=== PATIENT | male | born 2000 | race Caucasian/White ===

== ENCOUNTER 2019-02-27 18:12 | Emergency (ER) | payer OTHER ==
[2019-02-27] MEDS ORDERED: METOCLOPRAMIDE 5 MG/ML 2 ML VIAL IVP STA (18:32)
[2019-02-27] MEDS ORDERED: SODIUM CHLORIDE 0.9% 1,000 ML IV STA (18:32)
[2019-02-27] MEDS ORDERED: diphenhydrAMINE 50 MG/ML 1 ML VIAL IVP STA (18:32)
--- NOTE | 2019-02-27 18:35 | ED ---
Nausea/Vomiting/Diarrhea HPI - General Chief complaint: Nausea/Vomiting/Diarrhea Stated complaint: Nausea Time Seen by Provider: 02/27/19 18:22 Source: patient Mode of arrival: ambulatory Limitations: no limitations - History of Present Illness Initial comments: 18-year-old male patient presents to the emergency department today for evaluation of nausea and vomiting. Patient states he woke this morning with nausea and then developed vomiting. Patient states that he vomits anytime he tries to eat or drink anything. States he has dry heaves when he doesn't have anything on his stomach. States he is having some mild generalized abdominal discomfort. States he has had 3 episodes of diarrhea with this. States vomitus is nonbilious and nonbloody. Denies any fever or chills. Denies any recent travel or sick contacts. Denies any recent medication changes or use of antibiotics. Does admit to drinking one beer yesterday. Denies eating any qu estionable foods. States he is otherwise healthy and was in his usual state of health prior to onset of symptoms. Patient denies any recent rash, shortness breath, chest pain, diarrhea, constipation, back pain, numbness, tingling, dizziness, weakness, hematuria, dysuria, urinary urgency, urinary frequency, headache, visual changes, or any other complaints. Patient was sent here from urgent care after receiving IV fluids and Zofran which did not improve his symptoms. - Related Data Previous Rx's Medication Instructions Recorded Dicyclomine [Bentyl] 20 mg PO QID #12 tablet 02/27/19 Metoclopramide [Reglan] 10 mg PO Q8H PRN #10 tab 02/27/19 Allergies Allergy/AdvReac Type Severity Reaction Status Date / Time No Known Allergies Allergy Verified 02/27/19 18:20 Review of Systems ROS Statement: Those systems with pertinent positive or pertinent negative responses have been documented in the HPI. ROS Other: All systems not noted in ROS Statement are negative. Past Medical History Past Medical History: No Reported History History of Any Multi-Drug Resistant Organisms: None Reported Past Surgical History: No Surgical Hx Reported Past Psychological History: No Psychological Hx Reported Smoking Status: Current every day smoker Past Alcohol Use History: None Reported Past Drug Use History: None Reported General Exam Limitations: no limitations General appearance: alert, in no apparent distress, other (Physical well- developed, well-nourished adult male patient in no acute distress. Vital signs upon presentation are temperature 98.0F, pulse 82, respirations 18, blood pressure 147/83, pulse ox 99% on room air.) Eye exam: Present: normal appearance, PERRL, EOMI. Absent: scleral icterus, conjunctival injection, periorbital swelling ENT exam: Present: normal exam, normal oropharynx, mucous membranes moist Respiratory exam: Present: normal lung sounds bilaterally. Absent: respiratory distress, wheezes, rales, rhonchi, stridor Cardiovascular Exam: Present: regular rate, normal rhythm, normal heart sounds. Absent: systolic murmur, diastolic murmur, rubs, gallop, clicks GI/Abdominal exam: Present: soft, normal bowel sounds. Absent: distended, tenderness, guarding, rebound, rigid Neurological exam: Present: alert, oriented X3, CN II-XII intact Psychiatric exam: Present: normal affect, normal mood Skin exam: Present: warm, dry, intact, normal color. Absent: rash Course Vital Signs 02/27/19 02/27/19 02/27/19 18:19 19:23 20:16 Temperature 98.0 F 98.9 F 98 F Pulse Rate 82 71 84 Respiratory 18 16 16 Rate Blood Pressure 147/83 123/71 123/71 O2 Sat by Pulse 99 96 100 Oximetry Medical Decision Making - Medical Decision Making 18-year-old male patient presents to emergency department today for evaluation of vomiting and diarrhea. Physical examination reveals soft nontender abdomen. Labs reviewed and did reveal white blood cell count of 15.2. Remainder labs are unremarkable. Leukocytosis felt to be reactive from vomiting. Patient did receive IV fluids, Reglan, and Benadryl here in the emergency department. Upon reevaluation he reports improvement of symptoms. Symptoms are consistent with viral gastritis. He will be discharged with antiemetics. He is instructed to start with clear liquid diet and advance as tolerated. Is instructed to follow- up with his primary care physician for recheck in 1-2 days. Return parameters w ere discussed in detail. He verbalizes understanding and agrees with this plan. - Lab Data Result diagrams: 02/27/19 18:47 02/27/19 18:47 Lab Results 02/27/19 02/27/19 02/27/19 Range/Units 18:47 18:47 20:08 WBC 15.2 H (4.0-11.0) k/uL RBC 5.30 (4.30-5.90) m/uL Hgb 15.8 (13.0-17.5) gm/dL Hct 47.0 (39.0-53.0) % MCV 88.8 (80.0-100.0) fL MCH 29.9 (25.0-35.0) pg MCHC 33.6 (31.0-37.0) g/dL RDW 12.5 (11.5-15.5) % Plt Count 369 (150-450) k/uL Neutrophils % 91 % Lymphocytes % 5 % Monocytes % 3 % Eosinophils % 1 % Basophils % 0 % Neutrophils # 13.8 H (1.3-7.7) k/uL Lymphocytes # 0.8 L (1.0-4.8) k/uL Monocytes # 0.4 (0-1.0) k/uL Eosinophils # 0.1 (0-0.7) k/uL Basophils # 0.0 (0-0.2) k/uL Sodium 140 (137-145) mmol/L Potassium 4.6 (3.5-5.1) mmol/L Chloride 106 (98-107) mmol/L Carbon Dioxide 24 (22-30) mmol/L Anion Gap 10 mmol/L BUN 11 (9-20) mg/dL Creatinine 0.59 L (0.66-1.25) mg/dL Est GFR (CKD-EPI)AfAm >90 (>60 ml/min/1.73 sqM) Est GFR (CKD-EPI)NonAf >90 (>60 ml/min/1.73 sqM) Glucose 136 H (74-99) mg/dL Calcium 10.0 (8.4-10.2) mg/dL Total Bilirubin 2.3 H (0.2-1.3) mg/dL AST 28 (17-59) U/L ALT 19 L (21-72) U/L Alkaline Phosphatase 82 (38-126) U/L Total Protein 7.5 (6.3-8.2) g/dL Albumin 4.6 (3.5-5.0) g/dL Amylase 87 (30-110) U/L Lipase 233 (23-300) U/L Urine Color Yellow Urine Appearance Clear (Clear) Urine pH 8.0 (5.0-8.0) Ur Specific [place] 1.020 (1.001-1.035) Urine Protein Negative (Negative) Urine Glucose (UA) Negative (Negative) Urine Ketones 1+ H (Negative) Urine Blood Negative (Negative) Urine Nitrite Negative (Negative) Urine Bilirubin Negative (Negative) Urine Urobilinogen <2.0 (<2.0) mg/dL Ur Leukocyte Esterase Negative (Negative) - Radiology Data Radiology results: report reviewed, image reviewed KUB x-ray of the abdomen is obtained. Report was reviewed in its entirety. Impression by Dr. Raymundo shows no pneumoperitoneum or bowel dilatation. Disposition Clinical Impression: Gastroenteritis Disposition: HOME SELF-CARE Condition: Good Instructions (If sedation given, give patient instructions): Gastroenteritis (ED), Acute Nausea and Vomiting (ED), Acute Diarrhea (ED) Additional Instructions: Take medications as directed. Start with a clear liquid diet and advance as tolerated. Follow up with her primary care physician for recheck in 1-2 days. Return to the emergency department immediately for any new, worsening, or concerning symptoms Prescriptions: Dicyclomine [Bentyl] 20 mg PO QID #12 tablet Metoclopramide [Reglan] 10 mg PO Q8H PRN #10 tab PRN Reason: Vomiting Is patient prescribed a controlled substance at d/c from ED?: No Referrals: None,Stated [Primary Care Provider] - 1-2 days Time of Disposition: 19:59
[2019-02-27 19:10] LABS: Basophils % (A) 0 %; Eosinophils # (A) 0.1 k/uL (0-0.7); Eosinophils % (A) 1 %; HGB 15.8 gm/dL (13.0-17.5); Lymphocytes # (A) 0.8 k/uL (1.0-4.8); Lymphocytes % (A) 5 %; MCH 29.9 pg (25.0-35.0); MCHC 33.6 g/dL (31.0-37.0); MCV 88.8 fL (80.0-100.0); Mean Platelet Volume 7.1; Monocytes # (A) 0.4 k/uL (0-1.0); Monocytes % (A) 3 %; Neutrophils # (A) 13.8 k/uL (1.3-7.7); Neutrophils % (A) 91 %; Platelet Count 369 k/uL (150-450); RDW 12.5 % (11.5-15.5); WBC 15.2 k/uL (4.0-11.0)
[2019-02-27 19:21] LABS: ALT 19 U/L (21-72); AST 28 U/L (17-59); Albumin 4.6 g/dL (3.5-5.0); Alkaline Phosphatase 82 U/L (38-126); Amylase 87 U/L (30-110); Anion Gap 10 mmol/L; Blood Urea Nitrogen 11 mg/dL (9-20); Carbon Dioxide 24 mmol/L (22-30); Chloride 106 mmol/L (98-107); Glucose 136 mg/dL (74-99); Lipase 233 U/L (23-300); Sodium 140 mmol/L (137-145); Total Bilirubin 2.3 mg/dL (0.2-1.3); Total Protein 7.5 g/dL (6.3-8.2)
--- NOTE | 2019-02-27 19:23 | XR ---
EXAMINATION TYPE: XR KUB DATE OF EXAM: 02/27/2019 6:54 PM CLINICAL HISTORY: Nausea, vomiting and diarrhea TECHNIQUE: Single supine KUB image of the abdomen is obtained. COMPARISON: None. FINDINGS: No dilated loops of large or small bowel. No pneumoperitoneum. Osseous structures are unrem arkable. Limited evaluation of lower thorax is unremarkable. IMPRESSION: No pneumoperitoneum or bowel dilatation.
[2019-02-27 19:24] VITALS: BP 123/71; RESP 16
[2019-02-27 19:25] LABS: Potassium 4.6 mmol/L (3.5-5.1)
[2019-02-27 20:18] VITALS: PULSE 84; TEMP 98
[2019-02-27 20:18] LABS: Appearance,Urine Clear (Clear); Bilirubin,Urine Negative (Negative); Blood,Urine Negative (Negative); Color,Urine Yellow; Glucose,Urine (UA) Negative (Negative); Ketones,Urine 1+ (Negative); Leukocyte Esterase,Urine Negative (Negative); Nitrite,Urine Negative (Negative); Protein,Urine Negative (Negative); Urobilinogen,Urine <2.0 mg/dL (<2.0)
== END 2019-02-27 20:20 | disposition home or self-care (01) ==
LOC: EC 18:12
DX: K52.9 Noninfective gastroenteritis and colitis, unspecified (principal); D72.829 Elevated white blood cell count, unspecified; F17.200 Nicotine dependence, unspecified, uncomplicated
CPT/HCPCS: 36415; 80053; 82150; 83690; 85025; 81003; 74018; 99284; 96374; 96375; 96361; J1200; J2765

== ENCOUNTER 2021-01-31 16:08 | Emergency (ER) | payer OTHER ==
[2021-01-31 16:21] VITALS: RESP 18
[2021-01-31] MEDS ORDERED: MORPHINE SULFATE 4 MG/ML SYRINGE IV STA (16:27)
[2021-01-31] MEDS ORDERED: SODIUM CHLORIDE 0.9% 1,000 ML IV STA (16:27)
[2021-01-31] MEDS ORDERED: ONDANSETRON 4 MG/2 ML VIAL IVP STA (16:27)
--- NOTE | 2021-01-31 16:29 | ED ---
Nausea/Vomiting/Diarrhea HPI - General Chief complaint: Nausea/Vomiting/Diarrhea Stated complaint: Abd Pain Time Seen by Provider: 01/31/21 16:23 Source: patient, RN notes reviewed Mode of arrival: wheelchair Limitations: no limitations - History of Present Illness Initial comments: Patient is a 20-year-old male that presents to emergency department with a three-day history of nausea and vomiting with generalized abdominal discomfort. He notes that he is not able to keep any food or liquids down and he was in obvious emotional distress while sitting up in bed during the exam interview. He kept repeating that he just wants the pain to stop and the nausea to stop. He stated that the pain was an 8 out of 10 unrelieved with any at home remedies. He said that nothing really aggravates or causes the nausea vomiting or abdominal pain is constant. He denied any chest pain shortness breath headache diarrhea constipation fever fatigue chills hematochezia melena hematemesis. - Related Data Home Medications Medication Instructions Recorded Confirmed No Known Home Medications 01/31/21 01/31/21 Allergies Allergy/AdvReac Type Severity Reaction Status Date / Time No Known Allergies Allergy Verified 01/31/21 17:44 Review of Systems ROS Statement: Those systems with pertinent positive or pertinent negative responses have been documented in the HPI. ROS Other: All systems not noted in ROS Statement are negative. Past Medical History Past Medical History: No Reported History History of Any Multi-Drug Resistant Organisms: None Reported Past Surgical History: No Surgical Hx Reported Past Psychological History: No Psychological Hx Reported Smoking Status: Current some day smoker Past Alcohol Use History: None Reported Past Drug Use History: Marijuana General Exam Limitations: no limitations General appearance: alert, in distress Head exam: Present: atraumatic, normocephalic, normal inspection Eye exam: Present: normal appearance, PERRL, EOMI. Absent: scleral icterus, conjunctival injection, periorbital swelling Neck exam: Present: normal inspection. Absent: tenderness, meningismus, lymphadenopathy Respiratory exam: Present: normal lung sounds bilaterally. Absent: respiratory distress, wheezes, rales, rhonchi, stridor Cardiovascular Exam: Present: regular rate, normal rhythm, normal heart sounds. Absent: systolic murmur, diastolic murmur, rubs, gallop, clicks GI/Abdominal exam: Present: soft, normal bowel sounds. Absent: distended, tenderness, guarding, rebound, rigid Extremities exam: Present: normal inspection, full ROM, normal capillary refill. Absent: tenderness, pedal edema, joint swelling, calf tenderness Neurological exam: Present: alert, oriented X3, CN II-XII intact Psychiatric exam: Present: normal affect, normal mood Skin exam: Present: warm, dry, intact, normal color. Absent: rash Course Vital Signs 01/31/21 01/31/21 16:18 18:54 Temperature 98.0 F 98.5 F Pulse Rate 92 80 Respiratory 18 18 Rate Blood Pressure 144/82 139/89 O2 Sat by Pulse 100 100 Oximetry Medical Decision Making - Medical Decision Making 20-year-old male complaining of abdominal pain with nausea and vomiting 3 days. Labs, 1 L normal saline, 4 mg of morphine, 4 mg of Zofran, KUB ordered. Labs unremarkable. KUB unremarkable for any acute process. Case discussed with Dr. 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 - Lab Data Result diagrams: 01/31/21 16:39 01/31/21 16:39 Lab Results 01/31/21 01/31/21 01/31/21 Range/Units 16:39 16:39 17:17 WBC 13.6 H (3.8-10.6) k/uL RBC 5.77 (4.30-5.90) m/uL Hgb 18.2 H (13.0-17.5) gm/dL Hct 50.9 (39.0-53.0) % MCV 88.1 (80.0-100.0) fL MCH 31.5 (25.0-35.0) pg MCHC 35.7 (31.0-37.0) g/dL RDW 12.0 (11.5-15.5) % Plt Count 273 (150-450) k/uL MPV 7.2 Neutrophils % 90 % Lymphocytes % 6 % Monocytes % 2 % Eosinophils % 1 % Basophils % 0 % Neutrophils # 12.2 H (1.3-7.7) k/uL Lymphocytes # 0.8 L (1.0-4.8) k/uL Monocytes # 0.3 (0-1.0) k/uL Eosinophils # 0.2 (0-0.7) k/uL Basophils # 0.0 (0-0.2) k/uL Sodium 138 (137-145) mmol/L Potassium 3.6 (3.5-5.1) mmol/L Chloride 100 (98-107) mmol/L Carbon Dioxide 23 (22-30) mmol/L Anion Gap 15 mmol/L BUN 14 (9-20) mg/dL Creatinine 0.81 (0.66-1.25) mg/dL Est GFR (CKD-EPI)AfAm >90 (>60 ml/min/1.73 sqM) Est GFR (CKD-EPI)NonAf >90 (>60 ml/min/1.73 sqM) Glucose 130 H (74-99) mg/dL Calcium 10.6 H (8.4-10.2) mg/dL Total Bilirubin 2.0 H (0.2-1.3) mg/dL AST 24 (17-59) U/L ALT 20 (4-49) U/L Alkaline Phosphatase 99 (38-126) U/L Total Protein 8.6 H (6.3-8.2) g/dL Albumin 5.2 H (3.5-5.0) g/dL Amylase 154 H (30-110) U/L Lipase 240 (23-300) U/L Urine Color Yellow Urine Appearance Turbid (Clear) Urine pH 8.0 (5.0-8.0) Ur Specific [place] 1.024 (1.001-1.035) Urine Protein 1+ H (Negative) Urine Glucose (UA) Negative (Negative) Urine Ketones 2+ H (Negative) Urine Blood Negative (Negative) Urine Nitrite Negative (Negative) Urine Bilirubin Negative (Negative) Urine Urobilinogen <2.0 (<2.0) mg/dL Ur Leukocyte Esterase Negative (Negative) Urine RBC 3 (0-5) /hpf Urine WBC 1 (0-5) /hpf Amorphous Sediment Occasional H (None) /hpf Urine Mucus Moderate H (None) /hpf - Radiology Data Radiology results: report reviewed, image reviewed KUB: Nonspecific bowel gas pattern, with a paucity of bowel gas. Disposition Clinical Impression: Nausea & vomiting Disposition: HOME SELF-CARE Condition: Stable Instructions (If sedation given, give patient instructions): Acute Nausea and Vomiting (ED) Additional Instructions: Please return to the Emergency Department if symptoms worsen or any other vj rns. Follow-up with primary care and powertrain design engineer Increase oral fluids, rest. Is patient prescribed a controlled substance at d/c from ED?: No Referrals: None,Stated [Primary Care Provider] - 1-2 days Jorge Zhu MD [STAFF PHYSICIAN] - 1-2 days Time of Disposition: 18:58
[2021-01-31 16:49] LABS: Basophils % (A) 0 %; Eosinophils # (A) 0.2 k/uL (0-0.7); Eosinophils % (A) 1 %; HCT 50.9 % (39.0-53.0); HGB 18.2 gm/dL (13.0-17.5); Lymphocytes # (A) 0.8 k/uL (1.0-4.8); Lymphocytes % (A) 6 %; MCH 31.5 pg (25.0-35.0); MCHC 35.7 g/dL (31.0-37.0); MCV 88.1 fL (80.0-100.0); Mean Platelet Volume 7.2; Monocytes # (A) 0.3 k/uL (0-1.0); Monocytes % (A) 2 %; Neutrophils # (A) 12.2 k/uL (1.3-7.7); Neutrophils % (A) 90 %; Platelet Count 273 k/uL (150-450); RBC 5.77 m/uL (4.30-5.90); WBC 13.6 k/uL (3.8-10.6)
[2021-01-31 17:02] LABS: ALT 20 U/L (4-49); AST 24 U/L (17-59); African American GFR (CKD) >90 (>60 ml/min/1.73 sqM); Albumin 5.2 g/dL (3.5-5.0); Alkaline Phosphatase 99 U/L (38-126); Amylase 154 U/L (30-110); Anion Gap 15 mmol/L; Blood Urea Nitrogen 14 mg/dL (9-20); Calcium 10.6 mg/dL (8.4-10.2); Carbon Dioxide 23 mmol/L (22-30); Chloride 100 mmol/L (98-107); Glucose 130 mg/dL (74-99); Lipase 240 U/L (23-300); Non-African American GFR(CKD) >90 (>60 ml/min/1.73 sqM); Potassium 3.6 mmol/L (3.5-5.1); Sodium 138 mmol/L (137-145); Total Protein 8.6 g/dL (6.3-8.2)
--- NOTE | 2021-01-31 17:23 | XR ---
EXAMINATION TYPE: XR KUB DATE OF EXAM: 01/31/2021 4:53 PM CLINICAL HISTORY: Abdominal pain and nausea TECHNIQUE: Upright images of the abdomen and pelvis were obtained COMPARISON: 02/27/2019. FINDINGS: Lung bases are clear. Nonspecific bowel gas pattern with a paucity of abdominal bowel gas. No pneumoperitoneum. The osseous structures are intact. IMPRESSION: Nonspecific bowel gas pattern, with a paucity of bowel gas.
[2021-01-31 17:47] LABS: Amorphous Sediment,Urine Occasional /hpf; Appearance,Urine Turbid (Clear); Bilirubin,Urine Negative (Negative); Blood,Urine Negative (Negative); Color,Urine Yellow; Glucose,Urine (UA) Negative (Negative); Ketones,Urine 2+ (Negative); Leukocyte Esterase,Urine Negative (Negative); Mucus,Urine Moderate /hpf; Nitrite,Urine Negative (Negative); Protein,Urine 1+ (Negative); RBC,Urine 3 /hpf (0-5); Specific Gravity,Urine 1.024 (1.001-1.035); Urobilinogen,Urine <2.0 mg/dL (<2.0); WBC,Urine 1 /hpf (0-5)
[2021-01-31 18:56] VITALS: BP 139/89; PULSE 80; TEMP 98.5
== END 2021-01-31 19:06 | disposition home or self-care (01) ==
LOC: EC 16:08
DX: R11.2 Nausea with vomiting, unspecified (principal); F12.90 Cannabis use, unspecified, uncomplicated; F17.200 Nicotine dependence, unspecified, uncomplicated
CPT/HCPCS: 36415; 80053; 82150; 83690; 85025; 81001; 74018; 99284; 96374; 96375; 96361; J2270; J2405

== ENCOUNTER 2021-05-02 17:44 | Inpatient (IN) | payer OTHER ==
[2021-05-02] MEDS ORDERED: KETOROLAC 15 MG/ML 1 ML VIAL IVP STA (19:28)
[2021-05-02] MEDS ORDERED: SODIUM CHLORIDE 0.9% 2,000 ML IV STA (19:28)
[2021-05-02] MEDS ORDERED: ONDANSETRON 4 MG/2 ML VIAL IVP STA (19:28)
[2021-05-02 19:42] LABS: Basophils % (A) 0 %; Eosinophils % (A) 0 %; HCT 49.8 % (39.0-53.0); HGB 17.4 gm/dL (13.0-17.5); Lymphocytes # (A) 0.9 k/uL (1.0-4.8); Lymphocytes % (A) 8 %; MCH 31.1 pg (25.0-35.0); MCHC 34.9 g/dL (31.0-37.0); MCV 89.2 fL (80.0-100.0); Mean Platelet Volume 7.5; Monocytes # (A) 0.2 k/uL (0-1.0); Monocytes % (A) 2 %; Neutrophils # (A) 9.1 k/uL (1.3-7.7); Neutrophils % (A) 89 %; Platelet Count 290 k/uL (150-450); RBC 5.59 m/uL (4.30-5.90); RDW 12.2 % (11.5-15.5); WBC 10.2 k/uL (3.8-10.6)
[2021-05-02 19:53] LABS: ALT 22 U/L (4-49); AST 27 U/L (17-59); African American GFR (CKD) >90 (>60 ml/min/1.73 sqM); Albumin 5.8 g/dL (3.5-5.0); Alkaline Phosphatase 105 U/L (38-126); Amylase 215 U/L (30-110); Anion Gap 17 mmol/L; Blood Urea Nitrogen 12 mg/dL (9-20); Calcium 10.8 mg/dL (8.4-10.2); Carbon Dioxide 22 mmol/L (22-30); Chloride 103 mmol/L (98-107); Glucose 121 mg/dL (74-99); Lipase 1010 U/L (23-300); Non-African American GFR(CKD) >90 (>60 ml/min/1.73 sqM); Potassium 3.9 mmol/L (3.5-5.1); Sodium 142 mmol/L (137-145); Total Bilirubin 3.2 mg/dL (0.2-1.3); Total Protein 8.8 g/dL (6.3-8.2)
[2021-05-02] MEDS ORDERED: METOCLOPRAMIDE 5 MG/ML 2 ML VIAL IVP STA (21:08)
[2021-05-02] MEDS ORDERED: diphenhydrAMINE 50 MG/ML 1 ML VIAL IVP STA (21:08)
[2021-05-02 21:18] LABS: Appearance,Urine Clear (Clear); Bilirubin,Urine Negative (Negative); Blood,Urine Negative (Negative); Color,Urine Light Yellow; Glucose,Urine (UA) Negative (Negative); Ketones,Urine 2+ (Negative); Leukocyte Esterase,Urine Negative (Negative); Nitrite,Urine Negative (Negative); PH, Urine 7.5 (5.0-8.0); Protein,Urine Negative (Negative); Specific Gravity,Urine 1.013 (1.001-1.035); Urobilinogen,Urine <2.0 mg/dL (<2.0)
--- NOTE | 2021-05-02 21:24 | US ---
EXAMINATION TYPE: US abdomen limited DATE OF EXAM: 05/02/2021 COMPARISON: None CLINICAL HISTORY: ruq. mid abdominal pain, nausea and vomiting x 2 years, getting worse EXAM MEASUREMENTS: Liver Length: 16.9 cm Gallbladder Wall: 0.2 cm CBD: 0.4 cm Right Kidney: 11.5 x 4.6 x 5.1 cm Pancreas: visualized portions appear wnl Liver: wnl Gallbladder: no evidence of stones Evidence for sonographic Cuevas's sign: no CBD: appears wnl Right Kidney: no evidence of hydronephrosis IMPRESSION: No acute sonographic process.
[2021-05-02] MEDS ORDERED: ONDANSETRON 4 MG/2 ML VIAL IVP PRN (22:19)
[2021-05-02] MEDS ORDERED: HYDROmorphone 0.5 MG/0.5 ML SYRINGE IVP PRN (22:19)
[2021-05-02] MEDS ORDERED: NALOXONE 0.4 MG/ML 1 ML VIAL IV PRN (22:19)
--- NOTE | 2021-05-02 22:19 | ED ---
General Adult HPI - General Source: patient, RN notes reviewed Mode of arrival: wheelchair Limitations: no limitations <Alec Talamantes - Last Filed: 05/02/21 22:17> <Micki Castellano - Last Filed: 05/08/21 23:45> - General Chief complaint: Nausea/Vomiting/Diarrhea Stated complaint: Nausea/Vomiting Time Seen by Provider: 05/02/21 18:35 - History of Present Illness Initial comments: 21-year-old male with a past medical history of cyclic vomiting syndrome presents to the emergency room for a chief complaint of nausea vomiting. Patient reports he has had nausea and vomiting for the past day. States he is having upper abdominal pain as well. States this happens every few weeks. Patient does admit that hot showers helped the pain and that he does smoke marijuana. Patient was not aware of this correlation. Patient denies fevers. Patient states his pain is better but he is still very nauseous and vomitin g.Patient has no other complaints at this time including shortness of breath, chest pain, headache, or visual changes. (Alec Talamantes) - Related Data Home Medications Medication Instructions Recorded Confirmed No Known Home Medications 05/03/21 05/03/21 Allergies Allergy/AdvReac Type Severity Reaction Status Date / Time No Known Allergies Allergy Verified 05/03/21 09:44 Review of Systems ROS Other: All systems not noted in ROS Statement are negative. <Alec Talamantes - Last Filed: 05/02/21 22:17> ROS Other: All systems not noted in ROS Statement are negative. <Micki Castellano - Last Filed: 05/08/21 23:45> ROS Statement: Those systems with pertinent positive or pertinent negative responses have been documented in the HPI. Past Medical History Past Medical History: No Reported History Additional Past Medical History / Comment(s): cyclic vomiting syndrome. History of Any Multi-Drug Resistant Organisms: None Reported Past Surgical History: No Surgical Hx Reported Past Psychological History: No Psychological Hx Reported Smoking Status: Current some day smoker Past Alcohol Use History: Rare Past Drug Use History: Marijuana <Alec Talamantes - Last Filed: 05/02/21 22:17> General Exam Limitations: no limitations General appearance: alert, in no apparent distress Head exam: Present: atraumatic, normocephalic, normal inspection Eye exam: Present: normal appearance ENT exam: Present: normal exam, mucous membranes moist Neck exam: Present: normal inspection, full ROM. Absent: tenderness, meningismus, lymphadenopathy Respiratory exam: Present: normal lung sounds bilaterally. Absent: respiratory distress, wheezes, rales, rhonchi, stridor Cardiovascular Exam: Present: regular rate, normal rhythm, normal heart sounds. Absent: systolic murmur, diastolic murmur, rubs, gallop, clicks GI/Abdominal exam: Present: soft, normal bowel sounds. Absent: distended, tenderness, guarding, rebound, rigid <Alec Talamantes - Last Filed: 05/02/21 22:17> Course Vital Signs 05/02/21 05/02/21 18:22 21:57 Temperature 97.8 F 98.1 F Pulse Rate 80 97 Respiratory 18 17 Rate Blood Pressure 125/86 125/79 O2 Sat by Pulse 100 100 Oximetry Medical Decision Making - Lab Data Result diagrams: 05/02/21 19:33 05/02/21 19:33 <Alec Talamantes - Last Filed: 05/02/21 22:17> - Lab Data Result diagrams: 05/02/21 19:33 05/02/21 19:33 <Micki Castellano - Last Filed: 05/08/21 23:45> - Medical Decision Making Vitals are stable. CBC unremarkable. CMP does show elevated bilirubin of 3.2 as well as pancreatitis with a lipase of 1000. Urinalysis reveals ketones of 2+ likely secondary to dehydration. Ultrasound was obtained which shows no acute sonographic process. Given new onset pancreatitis. She'll be admitted for IV fluids and anti-emetics. GI will be consulted. (Alec Talamantes) I was available for consultation in the emergency department. The history and physical exam were done by the midlevel provider. I was consulted for this patients care. I reviewed the case with the midlevel provider and based on their presentation of the patient, I agree with the assessment, medical decision making and plan of care as documented. Chart was dictated using [employer] dictation software. Attempts were made to correct any dictation errors however some typographical errors may persist. (Micki Castellano) - Lab Data Lab Results 05/02/21 05/02/21 05/02/21 Range/Units 19:33 19:33 19:33 WBC 10.2 (3.8-10.6) k/uL RBC 5.59 (4.30-5.90) m/uL Hgb 17.4 (13.0-17.5) gm/dL Hct 49.8 (39.0-53.0) % MCV 89.2 (80.0-100.0) fL MCH 31.1 (25.0-35.0) pg MCHC 34.9 (31.0-37.0) g/dL RDW 12.2 (11.5-15.5) % Plt Count 290 (150-450) k/uL MPV 7.5 Neutrophils % 89 % Lymphocytes % 8 % Monocytes % 2 % Eosinophils % 0 % Basophils % 0 % Neutrophils # 9.1 H (1.3-7.7) k/uL Lymphocytes # 0.9 L (1.0-4.8) k/uL Monocytes # 0.2 (0-1.0) k/uL Eosinophils # 0.0 (0-0.7) k/uL Basophils # 0.0 (0-0.2) k/uL Sodium 142 (137-145) mmol/L Potassium 3.9 (3.5-5.1) mmol/L Chloride 103 (98-107) mmol/L Carbon Dioxide 22 (22-30) mmol/L Anion Gap 17 mmol/L BUN 12 (9-20) mg/dL Creatinine 0.84 (0.66-1.25) mg/dL Est GFR (CKD-EPI)AfAm >90 (>60 ml/min/1.73 sqM) Est GFR (CKD-EPI)NonAf >90 (>60 ml/min/1.73 sqM) Glucose 121 H (74-99) mg/dL Calcium 10.8 H (8.4-10.2) mg/dL Total Bilirubin 3.2 H (0.2-1.3) mg/dL AST 27 (17-59) U/L ALT 22 (4-49) U/L Alkaline Phosphatase 105 (38-126) U/L Total Protein 8.8 H (6.3-8.2) g/dL Albumin 5.8 H (3.5-5.0) g/dL Amylase 215 H (30-110) U/L Lipase 1010 H (23-300) U/L Urine Color Light Yellow Urine Appearance Clear (Clear) Urine pH 7.5 (5.0-8.0) Ur Specific [place] 1.013 (1.001-1.035) Urine Protein Negative (Negative) Urine Glucose (UA) Negative (Negative) Urine Ketones 2+ H (Negative) Urine Blood Negative (Negative) Urine Nitrite Negative (Negative) Urine Bilirubin Negative (Negative) Urine Urobilinogen <2.0 (<2.0) mg/dL Ur Leukocyte Esterase Negative (Negative) Disposition Is patient prescribed a controlled substance at d/c from ED?: No Time of Disposition: 22:19 <Alec Talamantes P - Last Filed: 05/02/21 22:17> <Micki Castellano - Last Filed: 05/08/21 23:45> Clinical Impression: Pancreatitis, Nausea & vomiting, Hyperbilirubinemia Disposition: ADMITTED IP TO THIS HOSP Condition: Good
[2021-05-02] MEDS: SODIUM CHLORIDE 0.9% 1,000 ML IV SCH (22:42)
[2021-05-02] MEDS ORDERED: NICOTINE 21MG/24HR PATCH TRANSDERM STA (23:48)
[2021-05-03] MEDS: SODIUM CHLORIDE 0.9% 1,000 ML IV SCH (05:00)
[2021-05-03 07:40] VITALS: BP 113/66; PULSE 73; RESP 17; TEMP 98
--- NOTE | 2021-05-03 12:21 | P.DS ---
Providers Date of admission: 05/02/21 23:15 Attending physician: Ramana Nolan MD Primary care physician: Sridhar See Hospital Course: Refer to [facility] for further details Plan - Discharge Summary Discharge Rx Participant: Yes New Discharge Prescriptions: No Action No Known Home Medications Discharge Medication List No Known Home Medications 05/03/21 [History] Follow up Appointment(s)/Referral(s): Sridhar See MD [Primary Care Provider] - 1-2 days
--- NOTE | 2021-05-03 12:21 | P.HPIM ---
History of Present Illness Pleasant 21-year-old male came in with complains of nausea vomiting was started yesterday with along with epigastric abdominal pain on and off epigastric abdominal pain sharp 10/10 in severity nonradiating. Patient does have history of a cyclical vomiting syndrome and does use marijuana daily basis. Patient's the cyclical vomiting has been becoming more frequent now about once a month used to be once in 2-3 months. Patient is found to have elevated lipase of 1010 and elevated a malaise because of which patient is admitted for pancreatitis. and alcohol abuse history patient still has his gallbladder will obtain a gallbladder ultrasound patient nausea vomiting as well as abdominal discomfort completely resolved at this time. REVIEW OF SYSTEMS: CONSTITUTIONAL: No fever, no malaise, no fatigue. HEENT: No recent visual problems or hearing problems. Denied any sore throat. CARDIOVASCULAR: No chest pain, orthopnea, PND, no palpitations, no syncope. PULMONARY: No shortness of breath, no cough, no hemoptysis. GASTROINTESTINAL: As mentioned in HPI. NEUROLOGICAL: No headaches, no weakness, no numbness. HEMATOLOGICAL: Denies any bleeding or petechiae. GENITOURINARY: Denies any burning micturition, frequency, or urgency. MUSCULOSKELETAL/RHEUMATOLOGICAL: Denies any joint pain, swelling, or any muscle pain. ENDOCRINE: Denies any polyuria or polydipsia. The rest of the 14-point review of systems is negative. PHYSICAL EXAMINATION: GENERAL: The patient is alert and oriented x3, not in any acute distress. Well developed, well nourished. HEENT: Pupils are round and equally reacting to light. EOMI. No scleral icterus. No conjunctival pallor. Normocephalic, atraumatic. No pharyngeal erythema. No thyromegaly. CARDIOVASCULAR: S1 and S2 present. No murmurs, rubs, or gallops. PULMONARY: Chest is clear to auscultation, no wheezing or crackles. ABDOMEN: Soft, nontender, nondistended, normoactive bowel sounds. No palpable organomegaly. MUSCULOSKELETAL: No joint swelling or deformity. EXTREMITIES: No cyanosis, clubbing, or pedal edema. NEUROLOGICAL: Gross neurological examination did not reveal any focal deficits. SKIN: No rashes. Assessment and plan -Nausea vomiting abdominal pain: Patient the lipase is only minimally elevated this is probably nonspecific elevation possibility of tendinitis is low. We'll still obtain gallbladder ultrasound. Patient's symptomology is probably sec ondary to cyclical vomiting syndrome and patient was advised to quit marijuana altogether. Patient will be started on diet after his ultrasound and if he is able to tolerate full liquid or soft diet patient will be discharged today patient's symptoms improved -Mild hyperbilirubinemia nonspecific elevation no further intervention is necessary at this time -Nicotine use: Counseling was provided DVT prophylaxis: Ambulation Past Medical History Past Medical History: No Reported History Additional Past Medical History / Comment(s): cyclic vomiting syndrome. History of Any Multi-Drug Resistant Organisms: None Reported Past Surgical History: No Surgical Hx Reported Past Psychological History: No Psychological Hx Reported Smoking Status: Current some day smoker Past Alcohol Use History: Rare Past Drug Use History: Marijuana Medications and Allergies Home Medications Medication Instructions Recorded Confirmed Type No Known Home Medications 05/03/21 05/03/21 History Allergies Allergy/AdvReac Type Severity Reaction Status Date / Time No Known Allergies Allergy Verified 05/03/21 09:44 Physical Exam Vitals: Vital Signs Temp Pulse Pulse Resp BP BP Pulse Ox 05/03/21 07:40 98 F 73 17 113/66 98 05/03/21 07:15 17 05/03/21 00:17 98.9 F 75 15 125/70 97 05/02/21 21:57 98.1 F 97 17 125/79 100 05/02/21 18:22 97.8 F 80 18 125/86 100 Intake and Output 05/02/21 05/03/21 05/03/21 22:59 06:59 14:59 Other: Weight 68.039 kg 68.039 kg Results CBC & Chem 7: 05/02/21 19:33 05/02/21 19:33 Labs: Abnormal Lab Results - Last 24 Hours (Table) 05/02/21 05/02/21 05/02/21 Range/Units 19:33 19:33 19:33 Neutrophils # 9.1 H (1.3-7.7) k/uL Lymphocytes # 0.9 L (1.0-4.8) k/uL Glucose 121 H (74-99) mg/dL Calcium 10.8 H (8.4-10.2) mg/dL Total Bilirubin 3.2 H (0.2-1.3) mg/dL Total Protein 8.8 H (6.3-8.2) g/dL Albumin 5.8 H (3.5-5.0) g/dL Amylase 215 H (30-110) U/L Lipase 1010 H (23-300) U/L Urine Ketones 2+ H (Negative)
== END 2021-05-03 13:45 | disposition home or self-care (01) | DRG 394 ==
LOC: EC 17:44 → 4SSUR 23:15
PROVIDERS: ADMIT Internal Medicine; ATTEND Internal Medicine
DX: R11.15 Cyclical vomiting syndrome unrelated to migraine (principal); R17 Unspecified jaundice; F12.988 Cannabis use, unspecified with other cannabis-induced disorder; E86.0 Dehydration; F10.10 Alcohol abuse, uncomplicated; F17.210 Nicotine dependence, cigarettes, uncomplicated; Z71.6 Tobacco abuse counseling
CPT/HCPCS: 36415; 76705; 80053; 81003; 82150; 83690; 85025; 96361; 96374; 96375; 99285

== ENCOUNTER 2022-03-28 09:33 | Emergency (ER) | payer OTHER ==
[2022-03-28 09:37] VITALS: PULSE 77; RESP 16; TEMP 97.5
[2022-03-28] MEDS ORDERED: SODIUM CHLORIDE 0.9% 1,000 ML IV STA (10:07)
[2022-03-28] MEDS ORDERED: DICYCLOMINE 10 MG/ML 2 ML AMP IM STA (10:08)
--- NOTE | 2022-03-28 10:16 | ED ---
General Adult HPI - General Chief complaint: Nausea/Vomiting/Diarrhea Stated complaint: Vomiting Time Seen by Provider: 03/28/22 10:00 Source: patient, RN notes reviewed, old records reviewed Mode of arrival: wheelchair Limitations: no limitations - History of Present Illness Initial comments: 22-year-old male presents to the emergency room with nausea and vomiting since this morning at 7:30. Patient has a history of frequent nausea vomiting diarrhea. He has never been told he has irritable bowel syndrome but he has been told he has cyclic vomiting syndrome. He does smoke marijuana daily. He denies alcohol use. In the past she has been told he has pancreatitis but states does not drink any alcohol. He denies any surgical history, denies any medications on a daily basis. He states he's had no fevers, no cough. Denies dysuria. States that his pain is intermittent and nausea is always in the morning and not at night. -: hour(s) Location: abdomen Severity scale (1-10): 1 Consistency: intermittent, now resolved Associated Symptoms: nausea/vomiting, other (diarrhea) Treatments Prior to Arrival: none - Related Data Previous Rx's Medication Instructions Recorded Dicyclomine [Bentyl] 20 mg PO QID 14 Days #56 tablet 03/28/22 Allergies Allergy/AdvReac Type Severity Reaction Status Date / Time No Known Allergies Allergy Verified 03/28/22 11:25 Review of Systems ROS Statement: Those systems with pertinent positive or pertinent negative responses have been documented in the HPI. ROS Other: All systems not noted in ROS Statement are negative. Past Medical History Past Medical History: No Reported History Additional Past Medical History / Comment(s): cyclic vomiting syndrome. History of Any Multi-Drug Resistant Organisms: None Reported Past Surgical History: No Surgical Hx Reported Past Psychological History: No Psychological Hx Reported Smoking Status: Current some day smoker Past Alcohol Use History: Rare Past Drug Use History: Marijuana General Exam Limitations: no limitations General appearance: alert, in no apparent distress Head exam: Present: atraumatic Eye exam: Present: normal appearance. Absent: scleral icterus, conjunctival injection, periorbital swelling ENT exam: Present: normal oropharynx, mucous membranes moist Neck exam: Present: normal inspection, full ROM. Absent: tenderness, meningismus, lymphadenopathy, thyromegaly Respiratory exam: Present: normal lung sounds bilaterally. Absent: respiratory distress, accessory muscle use Cardiovascular Exam: Present: regular rate, normal rhythm GI/Abdominal exam: Present: soft, tenderness (Mid abdominal pain), normal bowel sounds. Absent: distended, guarding, rebound, rigid Extremities exam: Present: normal inspection, normal capillary refill. Absent: pedal edema Back exam: Present: normal inspection, full ROM. Absent: tenderness, CVA tenderness (R), CVA tenderness (L), rash noted Neurological exam: Present: alert, oriented X3 Psychiatric exam: Present: normal affect, normal mood Skin exam: Present: warm, dry, intact, pallor. Absent: cyanosis, diaphoretic, erythema Course Vital Signs 03/28/22 09:34 Temperature 97.5 F L Pulse Rate 77 Respiratory 16 Rate Blood Pressure 136/84 O2 Sat by Pulse 98 Oximetry - Reevaluation(s) Reevaluation #1: 03/28/22 11:05 Patient continues to have periumbilical abdominal pain with some nausea. He states nausea has improved. CT abdomen ordered to rule out obstruction vs ileus. Time: 11:05 Medical Decision Making - Medical Decision Making Labs show a slight leukocytosis likely related to persistent vomiting. No significant elevation in LFTs. CT shows hepatomegaly with tiny hiatal hernia. No evidence of acute appendicitis. Patient has history of cyclic vomiting syndrome. Was given a prescription for Bentyl as directed to return to the emergency room if any new or concerning symptoms including increased abdominal pain especially in light lower quadrant, fever or persistent nausea vomiting. I encouraged him to follow up with his [facility] care Dr See next week. He and his family member are agreeable to this plan of care. - Lab Data Result diagrams: 03/28/22 10:20 03/28/22 10:20 Lab Results 03/28/22 03/28/22 03/28/22 Range/Units 10:20 10:20 10:20 WBC 14.7 H (3.8-10.6) k/uL RBC 4.71 (4.30-5.90) m/uL Hgb 15.0 (13.0-17.5) gm/dL Hct 43.5 (39.0-53.0) % MCV 92.4 (80.0-100.0) fL MCH 31.8 (25.0-35.0) pg MCHC 34.4 (31.0-37.0) g/dL RDW 12.7 (11.5-15.5) % Plt Count 278 (150-450) k/uL MPV 7.0 Neutrophils % 87 % Lymphocytes % 8 % Monocytes % 3 % Eosinophils % 0 % Basophils % 0 % Neutrophils # 12.8 H (1.3-7.7) k/uL Lymphocytes # 1.2 (1.0-4.8) k/uL Monocytes # 0.5 (0-1.0) k/uL Eosinophils # 0.0 (0-0.7) k/uL Basophils # 0.0 (0-0.2) k/uL Sodium 142 (137-145) mmol/L Potassium 4.0 (3.5-5.1) mmol/L Chloride 110 H (98-107) mmol/L Carbon Dioxide 23 (22-30) mmol/L Anion Gap 9 mmol/L BUN 12 (9-20) mg/dL Creatinine 0.69 (0.66-1.25) mg/dL Est GFR (CKD-EPI)AfAm >90 (>60 ml/min/1.73 sqM) Est GFR (CKD-EPI)NonAf >90 (>60 ml/min/1.73 sqM) Glucose 139 H (74-99) mg/dL Calcium 9.5 (8.4-10.2) mg/dL Total Bilirubin 1.4 H (0.2-1.3) mg/dL AST 33 (17-59) U/L ALT 30 (4-49) U/L Alkaline Phosphatase 105 (38-126) U/L Total Protein 7.6 (6.3-8.2) g/dL Albumin 4.8 (3.5-5.0) g/dL Amylase 177 H (30-110) U/L Lipase 120 (23-300) U/L Urine Color Yellow Urine Appearance Clear (Clear) Urine pH 8.5 H (5.0-8.0) Ur Specific [place] 1.024 (1.001-1.035) Urine Protein 2+ H (Negative) Urine Glucose (UA) Negative (Negative) Urine Ketones 2+ H (Negative) Urine Blood Negative (Negative) Urine Nitrite Negative (Negative) Urine Bilirubin Negative (Negative) Urine Urobilinogen <2.0 (<2.0) mg/dL Ur Leukocyte Esterase Negative (Negative) Urine RBC 1 (0-5) /hpf Urine WBC 2 (0-5) /hpf Ur Squamous Epith Cells <1 (0-4) /hpf Hyaline Casts 1 (0-2) /lpf Urine Mucus Occasional H (None) /hpf Disposition Clinical Impression: Abdominal pain, Nausea & vomiting Disposition: HOME SELF-CARE Condition: Good Instructions (If sedation given, give patient instructions): Acute Nausea and Vomiting (ED), Abdominal Pain (ED) Additional Instructions: Take Bentyl as prescribed and follow-up with your primary care doctor next week. Return to the emergency room with a concerning symptoms including fever, persistent nausea, vomiting or increased abdominal pain, especially right lower quadrant. Prescriptions: Dicyclomine [Bentyl] 20 mg PO QID 14 Days #56 tablet Is patient prescribed a controlled substance at d/c from ED?: No Referrals: Sridhar See MD [Primary Care Provider] - 1-2 days Time of Disposition: 12:46
[2022-03-28 10:44] LABS: Basophils % (A) 0 %; Eosinophils % (A) 0 %; HCT 43.5 % (39.0-53.0); Lymphocytes # (A) 1.2 k/uL (1.0-4.8); Lymphocytes % (A) 8 %; MCH 31.8 pg (25.0-35.0); MCHC 34.4 g/dL (31.0-37.0); MCV 92.4 fL (80.0-100.0); Monocytes # (A) 0.5 k/uL (0-1.0); Monocytes % (A) 3 %; Neutrophils # (A) 12.8 k/uL (1.3-7.7); Neutrophils % (A) 87 %; Platelet Count 278 k/uL (150-450); RBC 4.71 m/uL (4.30-5.90); RDW 12.7 % (11.5-15.5); WBC 14.7 k/uL (3.8-10.6)
[2022-03-28 10:52] LABS: ALT 30 U/L (4-49); African American GFR (CKD) >90 (>60 ml/min/1.73 sqM); Albumin 4.8 g/dL (3.5-5.0); Amylase 177 U/L (30-110); Anion Gap 9 mmol/L; Blood Urea Nitrogen 12 mg/dL (9-20); Calcium 9.5 mg/dL (8.4-10.2); Carbon Dioxide 23 mmol/L (22-30); Chloride 110 mmol/L (98-107); Glucose 139 mg/dL (74-99); Lipase 120 U/L (23-300); Non-African American GFR(CKD) >90 (>60 ml/min/1.73 sqM); Sodium 142 mmol/L (137-145); Total Bilirubin 1.4 mg/dL (0.2-1.3); Total Protein 7.6 g/dL (6.3-8.2)
[2022-03-28 10:58] LABS: Appearance,Urine Clear (Clear); Bilirubin,Urine Negative (Negative); Blood,Urine Negative (Negative); Color,Urine Yellow; Glucose,Urine (UA) Negative (Negative); Hyaline Casts,Urine 1 /lpf (0-2); Ketones,Urine 2+ (Negative); Leukocyte Esterase,Urine Negative (Negative); Mucus,Urine Occasional /hpf; Nitrite,Urine Negative (Negative); PH, Urine 8.5 (5.0-8.0); Protein,Urine 2+ (Negative); RBC,Urine 1 /hpf (0-5); Specific Gravity,Urine 1.024 (1.001-1.035); Squamous Epithelial Cell,Urine <1 /hpf (0-4); Urobilinogen,Urine <2.0 mg/dL (<2.0); WBC,Urine 2 /hpf (0-5)
[2022-03-28 11:00] LABS: AST 33 U/L (17-59); Alkaline Phosphatase 105 U/L (38-126)
[2022-03-28] MEDS ORDERED: ONDANSETRON 4 MG/2 ML VIAL IVP STA (11:05)
--- NOTE | 2022-03-28 12:10 | CT ---
EXAMINATION TYPE: CT abdomen pelvis w con DATE OF EXAM: 03/28/2022 COMPARISON: NONE HISTORY: 22-year-old male nausea and vomiting TECHNIQUE: Contiguous axial scanning of the abdomen and pelvis following administration of 100 ml Iso nithya 300 IV contrast. Delayed images through the kidneys and coronal/sagittal reconstructions perform ed. CT DLP: 623.3 mGycm Automated exposure control for dose reduction was used. FINDINGS: The heart is normal size without pericardial effusion. This are without pleural effusion. Tiny hiatal hernia. Liver shows prominent periportal edema. Distention of the IVC. Findings suggest aggressive fluid hydr ation. Liver enlarged at 21.6 cm. Portal venous system is patent. No biliary ductal dilatation. Gallbladder, adrenal glands, kidneys, spleen, and pancreas within normal limits. No dilated small bowel, free fluid, or free air. A couple fluid-filled small bowel loops low in the p adelfo likely transient. No significant stool burden. No pericolonic inflammatory change. Bladder incompletely distended. Left-sided pelvic phleboliths. Unable to clearly identify the appendix. No convincing findings of acute appendicitis. Bones: Bilateral L5 pars defects with grade 1, nearly grade 2 anterolisthesis at L5-S1. Secondary priyanka ateral neuroforaminal stenoses, left greater than right. IMPRESSION: 1. HEPATOMEGALY AT 21.6 CM. CLINICALLY CORRELATE. TINY HIATAL HERNIA. 2. UNABLE TO CLEARLY IDENTIFY THE APPENDIX. NO CONVINCING FINDINGS OF ACUTE APPENDICITIS. 3. 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 SECONDARY BILATER AL NEUROFORAMINAL STENOSES AT L5-S1, LEFT GREATER THAN RIGHT. CONSIDER ORTHOPEDIC/NEUROSURGICAL REFER RAL.
[2022-03-28 13:32] VITALS: BP 121/69
== END 2022-03-28 13:32 | disposition home or self-care (01) ==
LOC: EC 09:33
DX: R19.7 Diarrhea, unspecified (principal); R11.2 Nausea with vomiting, unspecified; F17.200 Nicotine dependence, unspecified, uncomplicated
CPT/HCPCS: 36415; 80053; 82150; 83690; 85025; 81001; 74177; 99284; 96374; 96375; 96372; 96361; J0500; J2405; Q9967; J1790